=== PATIENT | female | born 1995 | race Caucasian/White ===

== ENCOUNTER 2022-09-30 12:42 | Emergency (ER) | payer OTHER, SELFPAY ==
--- NOTE | ~2022-09-30 | XR_ITS ---
EXAMINATION: XR ABDOMEN COMPLETE CLINICAL INDICATION: Reason for Exam rt abd pain COMPARISON: KUB 07/21/2009 TECHNIQUE: AP view of the abdomen. FINDINGS: Lines or devices: None. Nonobstructive bowel gas pattern. Moderate colonic stool burden. Supine technique limits evaluation for extraluminal air although no secondary findings are appreciated. Few calcifications in the pelvis favored to reflect phleboliths. XR/XR KUB IMPRESSION: * Few calcifications in the pelvis favored to reflect phleboliths however if any clinical concern for ureterolithiasis CT stone protocol could be obtained.
[2022-09-30 12:51] VITALS: BP 121/76; PULSE 83; RESP 18; TEMP 36.1; O2SAT 96; BMI 36.8
--- NOTE | 2022-09-30 12:55 | ED.ABDPAIN ---
HPI - Abdominal Pain General Chief Complaint: Abdominal Pain <Racheal Ludwig NP - Last Filed: 09/30/22 12:57> Stated Complaint: abd pain <Racheal Ludwig NP - Last Filed: 09/30/22 12:57> Time Seen by Provider: 09/30/22 13:57 <Racheal Ludwig NP - Last Filed: 09/30/22 12:57> Source: patient <Gisselle Lee MD - Last Filed: 09/30/22 18:17> Mode of arrival: ambulatory <Gisselle Lee MD - Last Filed: 09/30/22 18:17> History of Present Illness HPI narrative: 27-year-old female comes in with right-sided abdominal pain for the past month that she states has become sharp in nature over the past couple of days and has not been associated with any fever, chills, nausea, vomiting, diarrhea, urinary pain/burning/frequency. Patient states her LMP was July/2022 and is status post tubal ligation. <Gisselle Lee MD - Last Filed: 09/30/22 18:17> Related Data Allergies/Adverse Reactions: Allergies Allergy/AdvReac Type Severity Reaction Status Date / Time morphine [MORPHINE] Allergy Unknown NAUSEA Unverified 05/22/20 17:51 sertraline [From ZOLOFT] Allergy Unknown MIGRAINES Unverified 05/22/20 17:51 <Racheal Ludwig NP - Last Filed: 09/30/22 12:57> Review of Systems Review of Systems Pertinent positives and negatives as stated in HPI. <Gisselle Lee MD - Last Filed: 09/30/22 18:17> PMFSH Past Medical History Source: nursing notes reviewed <Gisselle Lee MD - Last Filed: 09/30/22 18:17> Social History Social History: Social History Advance Directives: No Advance Directives Information Provided: Yes <Racheal Ludwig NP - Last Filed: 09/30/22 12:57> Physical Exam ED Vital Signs: Vital Signs - 24 hr 09/30/22 12:51 09/30/22 14:04 09/30/22 16:18 Temperature 97.0 F 98.4 F Pulse Rate 83 65 76 Respiratory Rate 18 15 18 Blood Pressure 121/76 125/74 126/70 Pulse Oximetry 96 95 97 Oxygen Delivery Method Room Air Room Air Room Air 09/30/22 17:53 Temperature Pulse Rate 72 Respiratory Rate 17 Blood Pressure 100/71 Pulse Oximetry 97 Oxygen Delivery Method Room Air BMI result Body Mass Index 36.8 <Racheal Ludwig NP - Last Filed: 09/30/22 12:57> Vital Signs - 24 hr 09/30/22 12:51 09/30/22 14:04 09/30/22 16:18 Temperature 97.0 F 98.4 F Pulse Rate 83 65 76 Respiratory Rate 18 15 18 Blood Pressure 121/76 125/74 126/70 Pulse Oximetry 96 95 97 Oxygen Delivery Method Room Air Room Air Room Air 09/30/22 17:53 Temperature Pulse Rate 72 Respiratory Rate 17 Blood Pressure 100/71 Pulse Oximetry 97 Oxygen Delivery Method Room Air BMI result Body Mass Index 36.8 VITAL SIGNS: Reviewed. GENERAL: Well developed, well nourished, in no acute distress. HEAD: Normocephalic/atraumatic EYES: PERRLA, EOMI EARS: Ext canals without abnormality OROPHARYNX: no oral lesions noted, posterior pharynx clear LUNGS: Normal breath sounds. No adventitious sounds or accessory muscle use. SpO2<97> CARDIOVASCULAR: Regular rate and rhythm without noted murmurs ABDOMEN: Soft, patient reports discomfort at the suprapubic area, non-distended with bowel sounds. MUSCULOSKELETAL: No tenderness, deformities, or effusions noted on gross inspection. EXTREMITIES: No cyanosis, clubbing or edema. SKIN: Inspection of the skin reveals no rashes NEUROLOGIC: Alert and oriented x 4. Strength and sensation to light touch were grossly intact x 4. <Gisselle Lee MD - Last Filed: 09/30/22 18:17> Course Course Course Narrative: This is rapid medical exam. Deferred additional HPI, ROS, PE to primary provider. 27 yo female with history of IBS, migraines here with right lower abdominal pain x 1 month, LMP 2 months ago. +currently sexually active. Not on control, had tubal ligation. Normal cycles are monthly. +nausea. No vomiting, diarrhea, urinary symptoms. VSS <Racheal Ludwig NP - Last Filed: 09/30/22 12:57> Medical Decision Making Medical Decision Making MDM Narrative: 27-year-old female with history and clinical presentation suggestive of possible constipation and lower clinical suspicion for renal colic, UTI. Review of all investigations my interpretation is that patient has exacerbation of her known and underlying IBS in no evidence to suggest ectopic, UTI, renal colic. On review of all investigations my interpretation is that patient has likely discomfort from underlying IBS and low clinical suspicion for renal colic. On re-evaluation she is feeling better after the Tylenol and ibuprofen is otherwise discharged home in stable condition with instructions to increase water intake and continue with Tylenol and ibuprofen and follow-up with primary care provider. <Gisselle Lee MD - Last Filed: 09/30/22 18:17> Differential Diagnosis Differential Diagnoses: The differential diagnosis associated with the presentation includes <Gisselle Lee MD - Last Filed: 09/30/22 18:17> Please see discussion above <Gisselle Lee MD - Last Filed: 09/30/22 18:17> Lab Data [facility] Lab Attestation statement: I reviewed the patient's lab results. <Gisselle Lee MD - Last Filed: 09/30/22 18:17> Please see the discussion above <Gisselle Lee MD - Last Filed: 09/30/22 18:17> Result Diagrams: 09/30/22 13:04 09/30/22 13:04 <Racheal Ludwig NP - Last Filed: 09/30/22 12:57> Labs: Lab Results 09/30/22 09/30/22 09/30/22 Range/Units 13:04 13:04 13:04 WBC 8.5 (4.8-10.8) X10*3/uL RBC 4.63 (4.20-5.50) X10*6/uL Hgb 14.0 (12.0-16.0) g/dl Hct 40.6 (37.0-47.0) % MCV 87.7 (80.0-98.0) fL MCH 30.2 (27.0-33.0) pg MCHC 34.5 (31.0-35.0) g/dl RDW 12.5 (11.0-16.0) % Plt Count 300 (160-400) X10*3/uL MPV 9.6 (9.4-12.3) fL Immature Gran % (Auto) 0.2 (0.0-0.4) % Neut % (Auto) 50.7 (45-73) % Lymph % (Auto) 38.7 (20-40) % [place] % (Auto) 8.4 (2-11) % Eos % (Auto) 1.4 (0-4) % Baso % (Auto) 0.6 (0-2) % Lymph # (Auto) 3.3 (1.2-4.9) X10*3/uL [place] # (Auto) 0.7 (0.1-1.2) X10*3/uL Eos # (Auto) 0.1 (0.0-0.4) X10*3/uL Baso # (Auto) 0.1 (0.0-0.2) X10*3/uL Abs Immat Gran (auto) 0.02 (0.00-0.03) X10*3/uL Absolute Neuts (auto) 4.3 (2.0-8.3) x10*3/uL Absolute Nucleated RBC 0.000 (0.0-0.012) X10*3/uL Nucleated RBC % (auto) 0.0 (0.0-0.2) /100WBC Sodium 139 (135-145) mmol/L Potassium 4.1 (3.3-5.1) mmol/L Chloride 105 (96-108) mmol/L Carbon Dioxide 25 (22-29) mmol/L Anion Gap 13 (12-20) BUN 10 (9-16) mg/dL Creatinine 0.80 (0.5-1.4) mg/dL Estim Creat Clear Calc 117.6 Estimated GFR > 60 Random Glucose 97 (60-115) mg/dL Calcium 9.6 (8.4-10.2) mg/dL Total Bilirubin 0.5 (0.0-1.0) mg/dL Direct Bilirubin < 0.2 (0.0-0.5) mg/dL AST 24 (5-31) U/L ALT 41 H (0-31) U/L Alkaline Phosphatase 63 (39-117) U/L Total Protein 7.5 (6.5-8.0) g/dL Albumin 4.6 (3.5-5.0) g/dL Urine Color Yellow Urine Appearance Clear Urine pH 6.0 (5.0-9.0) Ur Specific [place] 1.025 (1.005-1.025) Urine Protein Trace (Neg-Trace) mg/dL Urine Glucose (UA) Negative (Negative) mg/dL Urine Ketones Trace (Negative) mg/dL Urine Blood Negative (Negative) Urine Nitrite Negative (Negative) Ur Leukocyte Esterase Small (1+) H (Negative) Urine RBC 0-2 (0-2) /HPF Urine WBC 0-5 (0-5) /HPF Ur Squamous Epith Cells 3-5 (0-2) /HPF Urine Bacteria None Seen (None Seen) Hyaline Casts 0-2 (0-2) /LPF Urine Test (NEGATIVE) 09/30/22 Range/Units 13:04 WBC (4.8-10.8) X10*3/uL RBC (4.20-5.50) X10*6/uL Hgb (12.0-16.0) g/dl Hct (37.0-47.0) % MCV (80.0-98.0) fL MCH (27.0-33.0) pg MCHC (31.0-35.0) g/dl RDW (11.0-16.0) % Plt Count (160-400) X10*3/uL MPV (9.4-12.3) fL Immature Gran % (Auto) (0.0-0.4) % Neut % (Auto) (45-73) % Lymph % (Auto) (20-40) % [place] % (Auto) (2-11) % Eos % (Auto) (0-4) % Baso % (Auto) (0-2) % Lymph # (Auto) (1.2-4.9) X10*3/uL [place] # (Auto) (0.1-1.2) X10*3/uL Eos # (Auto) (0.0-0.4) X10*3/uL Baso # (Auto) (0.0-0.2) X10*3/uL Abs Immat Gran (auto) (0.00-0.03) X10*3/uL Absolute Neuts (auto) (2.0-8.3) x10*3/uL Absolute Nucleated RBC (0.0-0.012) X10*3/uL Nucleated RBC % (auto) (0.0-0.2) /100WBC Sodium (135-145) mmol/L Potassium (3.3-5.1) mmol/L Chloride (96-108) mmol/L Carbon Dioxide (22-29) mmol/L Anion Gap (12-20) BUN (9-16) mg/dL Creatinine (0.5-1.4) mg/dL Estim Creat Clear Calc Estimated GFR Random Glucose (60-115) mg/dL Calcium (8.4-10.2) mg/dL Total Bilirubin (0.0-1.0) mg/dL Direct Bilirubin (0.0-0.5) mg/dL AST (5-31) U/L ALT (0-31) U/L Alkaline Phosphatase (39-117) U/L Total Protein (6.5-8.0) g/dL Albumin (3.5-5.0) g/dL Urine Color Urine Appearance Urine pH (5.0-9.0) Ur Specific [place] (1.005-1.025) Urine Protein (Neg-Trace) mg/dL Urine Glucose (UA) (Negative) mg/dL Urine Ketones (Negative) mg/dL Urine Blood (Negative) Urine Nitrite (Negative) Ur Leukocyte Esterase (Negative) Urine RBC (0-2) /HPF Urine WBC (0-5) /HPF Ur Squamous Epith Cells (0-2) /HPF Urine Bacteria (None Seen) Hyaline Casts (0-2) /LPF Urine Test NEGATIVE (NEGATIVE) <Racheal Ludwig, CURING FINISHER - Last Filed: 09/30/22 12:57> Lab Results 09/30/22 09/30/22 09/30/22 Range/Units 13:04 13:04 13:04 WBC 8.5 (4.8-10.8) X10*3/uL RBC 4.63 (4.20-5.50) X10*6/uL Hgb 14.0 (12.0-16.0) g/dl Hct 40.6 (37.0-47.0) % MCV 87.7 (80.0-98.0) fL MCH 30.2 (27.0-33.0) pg MCHC 34.5 (31.0-35.0) g/dl RDW 12.5 (11.0-16.0) % Plt Count 300 (160-400) X10*3/uL MPV 9.6 (9.4-12.3) fL Immature Gran % (Auto) 0.2 (0.0-0.4) % Neut % (Auto) 50.7 (45-73) % Lymph % (Auto) 38.7 (20-40) % [place] % (Auto) 8.4 (2-11) % Eos % (Auto) 1.4 (0-4) % Baso % (Auto) 0.6 (0-2) % Lymph # (Auto) 3.3 (1.2-4.9) X10*3/uL [place] # (Auto) 0.7 (0.1-1.2) X10*3/uL Eos # (Auto) 0.1 (0.0-0.4) X10*3/uL Baso # (Auto) 0.1 (0.0-0.2) X10*3/uL Abs Immat Gran (auto) 0.02 (0.00-0.03) X10*3/uL Absolute Neuts (auto) 4.3 (2.0-8.3) x10*3/uL Absolute Nucleated RBC 0.000 (0.0-0.012) X10*3/uL Nucleated RBC % (auto) 0.0 (0.0-0.2) /100WBC Sodium 139 (135-145) mmol/L Potassium 4.1 (3.3-5.1) mmol/L Chloride 105 (96-108) mmol/L Carbon Dioxide 25 (22-29) mmol/L Anion Gap 13 (12-20) BUN 10 (9-16) mg/dL Creatinine 0.80 (0.5-1.4) mg/dL Estim Creat Clear Calc 117.6 Estimated GFR > 60 Random Glucose 97 (60-115) mg/dL Calcium 9.6 (8.4-10.2) mg/dL Total Bilirubin 0.5 (0.0-1.0) mg/dL Direct Bilirubin < 0.2 (0.0-0.5) mg/dL AST 24 (5-31) U/L ALT 41 H (0-31) U/L Alkaline Phosphatase 63 (39-117) U/L Total Protein 7.5 (6.5-8.0) g/dL Albumin 4.6 (3.5-5.0) g/dL Urine Color Yellow Urine Appearance Clear Urine pH 6.0 (5.0-9.0) Ur Specific [place] 1.025 (1.005-1.025) Urine Protein Trace (Neg-Trace) mg/dL Urine Glucose (UA) Negative (Negative) mg/dL Urine Ketones Trace (Negative) mg/dL Urine Blood Negative (Negative) Urine Nitrite Negative (Negative) Ur Leukocyte Esterase Small (1+) H (Negative) Urine RBC 0-2 (0-2) /HPF Urine WBC 0-5 (0-5) /HPF Ur Squamous Epith Cells 3-5 (0-2) /HPF Urine Bacteria None Seen (None Seen) Hyaline Casts 0-2 (0-2) /LPF Urine Test (NEGATIVE) 09/30/22 Range/Units 13:04 WBC (4.8-10.8) X10*3/uL RBC (4.20-5.50) X10*6/uL Hgb (12.0-16.0) g/dl Hct (37.0-47.0) % MCV (80.0-98.0) fL MCH (27.0-33.0) pg MCHC (31.0-35.0) g/dl RDW (11.0-16.0) % Plt Count (160-400) X10*3/uL MPV (9.4-12.3) fL Immature Gran % (Auto) (0.0-0.4) % Neut % (Auto) (45-73) % Lymph % (Auto) (20-40) % [place] % (Auto) (2-11) % Eos % (Auto) (0-4) % Baso % (Auto) (0-2) % Lymph # (Auto) (1.2-4.9) X10*3/uL [place] # (Auto) (0.1-1.2) X10*3/uL Eos # (Auto) (0.0-0.4) X10*3/uL Baso # (Auto) (0.0-0.2) X10*3/uL Abs Immat Gran (auto) (0.00-0.03) X10*3/uL Absolute Neuts (auto) (2.0-8.3) x10*3/uL Absolute Nucleated RBC (0.0-0.012) X10*3/uL Nucleated RBC % (auto) (0.0-0.2) /100WBC Sodium (135-145) mmol/L Potassium (3.3-5.1) mmol/L Chloride (96-108) mmol/L Carbon Dioxide (22-29) mmol/L Anion Gap (12-20) BUN (9-16) mg/dL Creatinine (0.5-1.4) mg/dL Estim Creat Clear Calc Estimated GFR Random Glucose (60-115) mg/dL Calcium (8.4-10.2) mg/dL Total Bilirubin (0.0-1.0) mg/dL Direct Bilirubin (0.0-0.5) mg/dL AST (5-31) U/L ALT (0-31) U/L Alkaline Phosphatase (39-117) U/L Total Protein (6.5-8.0) g/dL Albumin (3.5-5.0) g/dL Urine Color Urine Appearance Urine pH (5.0-9.0) Ur Specific [place] (1.005-1.025) Urine Protein (Neg-Trace) mg/dL Urine Glucose (UA) (Negative) mg/dL Urine Ketones (Negative) mg/dL Urine Blood (Negative) Urine Nitrite (Negative) Ur Leukocyte Esterase (Negative) Urine RBC (0-2) /HPF Urine WBC (0-5) /HPF Ur Squamous Epith Cells (0-2) /HPF Urine Bacteria (None Seen) Hyaline Casts (0-2) /LPF Urine Test NEGATIVE (NEGATIVE) <Gisselle Lee MD - Last Filed: 09/30/22 18:17> Radiology Impression Radiologist Impression: My interpretation is in agreement with radiology's impression of the imaging study. <Gisselle Lee MD - Last Filed: 09/30/22 18:17> Medications Administered Discontinued Medications Generic Name Dose Route Start Last Admin Trade Name Freq PRN Reason Stop Dose Admin Acetaminophen 975 mg 09/30/22 17:00 09/30/22 17:56 Acetaminophen 325 Mg Tablet PO 09/30/22 17:01 Not Given ONCE ONE Ibuprofen 400 mg 09/30/22 17:00 09/30/22 17:56 Ibuprofen 400 Mg Tablet PO 09/30/22 17:01 Not Given ONCE ONE <Racheal Ludwig NP - Last Filed: 09/30/22 12:57> Medications Administered Discontinued Medications Generic Name Dose Route Start Last Admin Trade Name Moira PRN Reason Stop Dose Admin Acetaminophen 975 mg 09/30/22 17:00 09/30/22 17:56 Acetaminophen 325 Mg Tablet PO 09/30/22 17:01 Not Given ONCE ONE Ibuprofen 400 mg 09/30/22 17:00 09/30/22 17:56 Ibuprofen 400 Mg Tablet PO 09/30/22 17:01 Not Given ONCE ONE <Gisselle Lee MD - Last Filed: 09/30/22 18:17> Discharge Plan Discharge Clinical Impression: History of IBS <Racheal Ludwig NP - Last Filed: 09/30/22 12:57> Patient Disposition: Home, Self-Care <Racheal Ludwig NP - Last Filed: 09/30/22 12:57> Instructions: Irritable Bowel Syndrome (ED) <Racheal Ludwig NP - Last Filed: 09/30/22 12:57> Additional Instructions: 1. I recommend further evaluation by your primary care provider, there were no acute findings your workup today. Increase water intake and to utilize [id number] Tylenol/ibuprofen for discomfort. Return to the ER for any worsening symptoms. <Racheal Ludwig NP - Last Filed: 09/30/22 12:57> Referrals: Alissa Osborn MD [Primary Care Provider] - <Racheal Ludwig NP - Last Filed: 09/30/22 12:57>
[2022-09-30 13:10] LABS: MANUAL DIFF FLAG NO
[2022-09-30 13:13] LABS: Basophils Absolute Auto 0.1 X10*3/uL (0.0-0.2); Basophils Percent Auto 0.6 % (0-2); Eosinophils Absolute Auto 0.1 X10*3/uL (0.0-0.4); Eosinophils Percent Auto 1.4 % (0-4); Hematocrit 40.6 % (37.0-47.0); Imm Gran Abs Auto 0.02 X10*3/uL (0.00-0.03); Imm Gran Pct Auto 0.2 % (0.0-0.4); Lymphocytes Absolute Auto 3.3 X10*3/uL (1.2-4.9); Lymphocytes Percent Auto 38.7 % (20-40); Mean Corpuscular HGB Conc 34.5 g/dl (31.0-35.0); Mean Corpuscular Hemoglobin 30.2 pg (27.0-33.0); Mean Corpuscular Volume 87.7 fL (80.0-98.0); Mean Platelet Volume 9.6 fL (9.4-12.3); Monocytes Absolute Auto 0.7 X10*3/uL (0.1-1.2); Monocytes Percent Auto 8.4 % (2-11); Neutrophils Absolute Auto 4.3 x10*3/uL (2.0-8.3); Neutrophils Percent Auto 50.7 % (45-73); Platelet Count 300 X10*3/uL (160-400); Red Blood Count 4.63 X10*6/uL (4.20-5.50); Red Cell Distribution Width 12.5 % (11.0-16.0); White Blood Count 8.5 X10*3/uL (4.8-10.8)
[2022-09-30 13:16] LABS: Urine Pregnancy NEGATIVE (NEGATIVE)
[2022-09-30 13:17] LABS: Appearance Urine Clear; Color Urine Yellow; Glucose Urine UA Negative (Negative); Leukocyte Esterase Urine Small (1+) (Negative); Nitrite Urine Negative (Negative); Specific Gravity - Urine 1.025 (1.005-1.025); UMIC TRIGGER UACC YES; UPreg QC Valid YES; Urine Blood Negative (Negative); Urine Ketones Trace mg/dL (Negative); Urine Protein Trace mg/dL (Neg-Trace)
[2022-09-30 13:27] LABS: Bacteria Urine None Seen (None Seen); Hyaline Casts Urine 0-2 /LPF (0-2); RBC Urine 0-2 /HPF (0-2); UACC Culture Trigger YES; WBC Urine 0-5 /HPF (0-5)
[2022-09-30 13:42] LABS: Alanine Aminotransferase 41 U/L (0-31); Albumin Level 4.6 g/dL (3.5-5.0); Alkaline Phosphatase 63 U/L (39-117); Anion Gap 13 (12-20); Aspartate Amino Transferase 24 U/L (5-31); Bilirubin Direct < 0.2 mg/dL (0.0-0.5); Bilirubin Total 0.5 mg/dL (0.0-1.0); Blood Urea Nitrogen 10 mg/dL (9-16); Calcium 9.6 mg/dL (8.4-10.2); Carbon Dioxide 25 mmol/L (22-29); Chloride 105 mmol/L (96-108); Creatinine Clr Calc Pharmacy 117.6; Estimated Glomerular Filt Rate > 60; Glucose Random 97 mg/dL (60-115); Potassium 4.1 mmol/L (3.3-5.1); Sodium 139 mmol/L (135-145); Total Protein 7.5 g/dL (6.5-8.0)
--- OUTSIDE RECORDS SUMMARY | 2022-09-30 14:00 | XMS_ITS | Continuity of Care Document ---
:1995 Author Organization [facility] ic Address [address] [place] [id number]- Care Team Providers Name Role Phone Barry ALEX, Nadja Conklin Primary Care Physician Encounter [facility] [place] Date(s): 09/20/19 - 01/16/[address] [address]- [facility] Attending Physician: Not on Staff, Attending MD Allergies, Adverse Reactions, Alerts Substance Reaction Severity Status morphine Active Zoloft Active Immunizations Given and Recorded Vaccine Date Status Refusal Reason influenza virus vaccine, inactivated 06/04/19 Given influenza virus vaccine, inactivated1 06/14/17 Given influenza virus vaccine, inactivated 05/31/14 Given tetanus/diphtheria/pertussis, acel(Tdap) 05/14/19 Given tetanus/diphtheria/pertussis, acel(Tdap) 04/29/14 Given 1Result Comment: [06/14/2017] [id number] Medications Prenatabs Rx oral tablet See Instructions, TAKE 1 TABLET BY MOUTH EVERY DAY, # 30 tablet, 8 Refills, Maintenance, [facility], 30, TAKE 1 TABLET BY MOUTH EVERY DAY, 163, cm, 09/10/19 11:32:00 EST, Height, 90.8, kg, 08/03/19 9:27:00 EST, Dry Weight Start Date: 01/16/20 Status: Ordered Problem List Condition Effective Dates Status Health Status Informant Elevated ALT measurement(Confirmed) Active Cholelithiasis previous pregnany Active 2018(Confirmed) Chiari malformation type I s/p Active repair(Confirmed) Gestational diabetes mellitus, Active antepartum(Confirmed) Headache(Confirmed) Active Irritable bowel syndrome Active (IBS)(Confirmed) Obesity(Confirmed) Active Other Pain Disorders Related to Active Psychological Factors(Confirmed) Social History Social History Type Response Smoking Status Never smoker entered on: 12/26/14 Sex
--- OUTSIDE RECORDS SUMMARY | 2022-09-30 14:00 | XMS_ITS | Continuity of Care Document ---
:1995 Author Organization [facility] ic Address [address] [place] [id number]- Care Team Providers Name Role Phone Barry ALEX, Nadja Conklin Primary Care Physician Encounter [facility] Date(s): 05/26/20 - 06/25/[address] [address]- [facility] Attending Physician: Maria De Jesus Mcconnell Admitting Physician: Maria De Jesus Mcconnell Referring Physician: AdmMaria De Jesus norman Allergies, Adverse Reactions, Alerts Substance Reaction Severity Status morphine Active Zoloft Active Immunizations Given and Recorded Vaccine Date Status Refusal Reason influenza virus vaccine, inactivated 06/04/19 Given influenza virus vaccine, inactivated1 06/14/17 Given influenza virus vaccine, inactivated 05/31/14 Given tetanus/diphtheria/pertussis, acel(Tdap) 05/14/19 Given tetanus/diphtheria/pertussis, acel(Tdap) 04/29/14 Given 1Result Comment: [06/14/2017] [id number] Medications Prenatabs Rx oral tablet See Instructions, TAKE 1 TABLET BY MOUTH EVERY DAY, # 30 tablet, 8 Refills, Maintenance, [id number], 30, TAKE 1 TABLET BY MOUTH EVERY [...]
--- OUTSIDE RECORDS SUMMARY | 2022-09-30 14:00 | XMS_ITS | Continuity of Care Document ---
:1995 Author Organization [facility] ic Address [address] [place] [id number]- Care Team Providers Name Role Phone Barry ALEX, Nadja Conklin Primary Care Physician Encounter [facility] [place] Date(s): 08/13/19 - 08/23/[address] [address]- [facility] Attending Physician: Maria De Jesus Mcconnell Admitting Physician: Maria De Jesus Mcconnell Referring Physician: AdmtrMaria De Jesus Allergies, Adverse Reactions, Alerts Substance Reaction Severity Status morphine Active Zoloft Active Immunizations Given and Recorded Vaccine Date Status Refusal Reason influenza virus vaccine, inactivated 06/04/19 Given influenza virus vaccine, inactivated1 06/14/17 Given influenza virus vaccine, inactivated 05/31/14 Given tetanus/diphtheria/pertussis, acel(Tdap) 05/14/19 Given tetanus/diphtheria/pertussis, acel(Tdap) 04/29/14 Given 1Result Comment: [06/14/2017] [id number] Medications nystatin topical 590044 u/gm cream 1 application, Topically, 3 times a day, for 14 days, # 15 Gm, 0 Refills, Acute 08/28/19 15:58:59 EST, 08/14/19 15:58:59 EST, Cream, apply to breast and wipe off before (baby has thrush),1 application Topically 3 times a day,x14 days, 1... Start Date: 08/14/19 Stop Date: 08/28/19 Status: OrderedPrenatal Multivitamins with Folic Acid 1 mg oral tablet 1 tablet, By Mouth, Daily, # 90 tablet, 3 Refills, Maintenance, 11/01/18 12:38:16 EST, Tablet, 1 tablet By Mouth Daily,x90 days Start Date: 11/01/18 Stop Date: 10/27/19 Status: Ordered Problem List Condition Effective Dates [...]
--- OUTSIDE RECORDS SUMMARY | 2022-09-30 14:00 | XMS_ITS | Continuity of Care Document ---
:1995 Author Organization [facility] Address [address] [place] [id number]- Care Team Providers Name Role Phone Nadja Reddy MD Primary Care Physician En[place] [facility] [place] Date(s): 05/09/22 - 05/10/[address] [address]- Encounter Diagnosis Left low back pain with radiculopathy (Final) - 05/10/22 Discharge Disposition: A-D/C Home Attending Physician: Chrissie Serna MD Admitting Physician: Chrissie Serna MD Referring Physician: Not on Staff, Referring MD Allergies, Adverse Reactions, Alerts Substance Reaction Severity Status morphine Active Zoloft Active Immunizations Given and Recorded Vaccine Date Status Refusal Reason influenza virus vaccine, inactivated 06/04/19 Given influenza virus vaccine, inactivated1 06/14/17 Given influenza virus vaccine, inactivated 05/31/14 Given tetanus/diphtheria/pertussis, acel(Tdap) 05/14/19 Given tetanus/diphtheria/pertussis, acel(Tdap) 04/29/14 Given 1Result Comment: [06/14/2017] [id number] Medications Colace sodium 100 mg oral capsule 100 mg, 1, capsule, By Mouth, 2 times a day, PRN, # 20 capsule, Refills 0, Tot. Refills 0, Maintenance, for constipation, 05/10/22 14:41:00 EDT, Route to Pharmacy Electronically, [facility]/pharmacy #[id number], Partial fill upon patient request if the prescriptio... Start Date: 05/10/22 Status: OrderedDepakote 250 mg oral enteric coated tablet 1 tablet = 250 mg, By Mouth, 3 times a day, # 90 tablet, 0 Refills, Maintenance, 04/23/21 14:03:00 EDT, EC Tablet, Partial fill upon patient request if the prescription is for a schedule II opioid drug. Start Date: 12/26/20 Status: Orderedlidocaine 1.8% topical film 1 patch, Topically, Daily, for 5 days, leave on up to 12 hours, # 5 each, 0 Refills, Acute 05/15/22 14:40:00 EDT, 05/10/22 14:40:00 EDT, Film, [facility]/pharmacy #[id number], Partial fill upon patient request if the prescription is for a schedule II opioid drug.,... Start Date: 05/10/22 Stop Date: 05/15/22 Status: OrderedMedrol 4 mg oral tablet 1 pack/packet, By Mouth, Daily, for 6 days, as directed on package labeling, # 21 tablet, 0 Refills,Acute 05/16/22 14:38:00 EDT, 05/10/22 14:38:00 EDT, Tablet, [facility]/pharmacy #[id number], Partial fill upon patient request if the prescription is for a schedul... Start Date: 05/10/22 Stop Date: 05/16/22 Status: OrderedoxyCODONE 5 mg oral tablet 5 mg, 1, tablet, By Mouth, Every 6 hours, PRN, for 2 days, # 5 tablet, Refills 0, Tot. Refills 0, Acute 05/12/22 14:40:00 EDT, for pain, 05/10/22 14:40:00 EDT, Route to Pharmacy Electronically, [facility]/pharmacy #[id number], Partial fill upon patient request if... Start Date: 05/10/22 Stop Date: 05/12/22 Status: OrderedPaxil 20 mg oral tablet 20 mg, 1, tablet, By Mouth, Daily, # 30 tablet, Refills 0, Maintenance, 12/26/20 14:03:00 EDT, Partial fill upon patient request if the prescription is for a schedule II opioid drug. Start Date: 12/26/20 Status: OrderedPrenatabs Rx oral tablet See Instructions, TAKE 1 TABLET BY MOUTH EVERY DAY, # 30 tablet, 8 Refills, Maintenance, [id number], 30, TAKE 1 TABLET BY MOUTH EVERY DAY, 163, cm, 09/10/19 11:32:00 EST, Height, 90.8, kg, 08/03/19 9:27:00 EST, Dry Weight Start Date: 01/16/20 Status: Ordered Problem List Condition Effective Dates Status Health Status Informant Elevated ALT measurement(Confirmed) Active Chiari malformation type I s/p Active repair(Confirmed) Irritable bowel syndrome Active (IBS)(Confirmed) Obese class II(Confirmed) Active Obesity(Confirmed) Active 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 Patient denies symptoms. Patient reports bloody stools since January 2022. Patient exacerbated by movement and standing. 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 FINDINGS: No bone lesions or fractures. Unchanged partial lumbarization of S1. Normal vertebral lumbar heights and disc configuration. Normal alignment. No spondylolysis or spondylolisthesis. Normal soft tissues. IMPRESSION: No acute fracture or dislocation. I have personally reviewed the images and I agree with this report. WSN: [id number] Ordering Physician: Juliano Boston Dictated By: Janna Roberts DO Dictated Date/Time: 05/09/22 9:23 pm Reviewed By: Luis Stone MD Signed By: Luis Stone MD Signed Date/Time: 05/09/22 9:28 pm Transcribed By: CHRISTINE Transcribed Date/Time: 05/09/22 9:21 pm Vital Signs Most recent to oldest 1 2 3 [Reference Range]: Height 163 cm 163 cm 163 cm (05/10/22 2:47 PM) (05/10/22 12:38 PM) (05/09/22 7:07 PM) Weight 98.1 kg 98.1 kg 98.1 kg (05/10/22 2:47 PM) (05/10/22 12:38 PM) (05/09/22 7:07 PM) Oxygen Saturation [94-100 %] 100 % 98 % 100 % (05/10/22 2:47 PM) (05/10/22 12:38 PM) (05/10/22 10:34 AM) Pulse Rate [55-90 bpm] 78 bpm 88 bpm 65 bpm (05/10/22 2:47 PM) (05/10/22 12:38 PM) (05/10/22 10:34 AM) Body Mass Index [18.5-24.99] 36.92 36.92 *>HHI* *>HHI* (05/10/22 2:47 PM) (05/10/22 12:38 PM) Blood Pressure [90-138/55-84 mm 121/73 mm Hg 104/53 mm Hg 121/68 mm Hg Hg] (05/10/22 2:47 PM) (05/10/22 12:38 PM) (05/10/22 10:34 AM) Respiratory Rate [16-30 br/min] 19 br/min 19 br/min 18 br/min (05/10/22 2:47 PM) (05/10/22 12:38 PM) (05/10/22 10:34 AM) Temperature [96.8-100.4 DegF] 97.9 DegF 97.7 DegF 97 .8 DegF (05/10/22 2:47 PM) (05/10/22 12:38 PM) (05/10/22 10:34 AM) Mode of Delivery (Oxygen) Room air Room air Room a ir (05/10/22 2:47 PM) (05/10/22 12:38 PM) (05/10/22 10:34 AM) Blood pressure sites Arm, right Arm, right Arm, left (05/10/22 10:34 AM) (05/10/22 8:13 AM) (05/10/22 6:30 AM) Temperature Route Oral Oral Oral (05/10/22 2:47 PM) (05/10/22 12:38 PM) (05/10/22 10:34 AM) Dry Weight 98.1 kg 98.1 kg 98.1 kg (05/10/22 2:47 PM) (05/10/22 12:38 PM) (05/09/22 7:07 PM) Social History Social History Type Response Smoking Status Never smoker entered on: 12/26/14 Sex XR Lumbar spine 2 or 3 Views BHSPowerscribe , CIS S: TRANSCRIBE Luis Stone MD: VERIFY Janna Roberts DO: SIGN Event Display: Result: Authored Date: [id number] Lumbar Spine 2 or 3 Views INDICATION: Patient reports awoke this morning with severe left lower back pain that radiates down left leg when standing. Patient denies symptoms. Patient reports bloody stools since January 2022. Patient exacerbated by movement and standing. 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 FINDINGS: No bone lesions or fractures. Unchanged partial lumbarization of S1. Normal vertebral lumbar heights and disc configuration. Normal alignment. No spondylolysis or spondylolisthesis. Normal soft tissues. IMPRESSION: No acute fracture or dislocation. I have personally reviewed the images and I agree with this report. WSN: [id number] Ordering Physician: Juliano Boston Dictated By: Janna Roberts DO Dictated Date/Time: 05/09/22 9:23 pm Reviewed By: Luis Stone MD Signed By: Luis Stone MD Signed Date/Time: 05/09/22 9:28 pm Transcribed By: CHRISTINE Transcribed Date/Time: 05/09/22 9:21 pm Care Team PersonnelName: Nadja Reddy MD Address: [address] [place] [address] [address]
--- OUTSIDE RECORDS SUMMARY | 2022-09-30 14:00 | XMS_ITS | Continuity of Care Document ---
:1995 Author Organization [facility] ic Address [address] [place] [address]- Care Team Providers Name Role Phone Nadja Reddy MD Primary Care Physician [place] [facility] [place] 03[place]/[address] [address]- [facility] Attending Physician: Not on Staff, Attending MD Referring Physician: Nadja Reddy MD Allergies, Adverse Reactions, Alerts Substance Reaction Severity Status morphine Active Zoloft Active Immunizations Given and Recorded Vaccine Date Status Refusal Reason influenza virus vaccine, inactivated 06/04/19 Given influenza virus vaccine, inactivated1 06/14/17 Given influenza virus vaccine, inactivated 05/31/14 Given tetanus/diphtheria/pertussis, acel(Tdap) 05/14/19 Given tetanus/diphtheria/pertussis, acel(Tdap) 04/29/14 Given 1Result Comment: [06/14/2017] [id number] Medications Prenatabs Rx oral tablet See Instructions, TAKE 1 TABLET BY MOUTH EVERY DAY, # 30 tablet, 8 Refills, Maintenance, [id number], 30, TAKE 1 TABLET BY MOUTH EVERY [...]
--- OUTSIDE RECORDS SUMMARY | 2022-09-30 14:00 | XMS_ITS | Continuity of Care Document ---
:1995 Author Organization [facility] ic Address [address] [place] [address]- Care Team Providers Name Role Phone Barry ALEX, Nadja Conklin Primary Care Physician Encounter [facility] [place] Date(s): 12/26/20 - 01/25/[address] [address] Attending Physician: Maria De Jesus Mcconnell Admitting Physician: AdmMaria De Jesus norman Referring Physician: Admtr, Maria De Jesus Allergies, Adverse Reactions, Alerts Substance Reaction Severity Status morphine Active Zoloft Active Immunizations Given and Recorded Vaccine Date Status Refusal Reason influenza virus vaccine, inactivated 06/04/19 Given influenza virus vaccine, inactivated1 06/14/17 Given influenza virus vaccine, inactivated 05/31/14 Given tetanus/diphtheria/pertussis, acel(Tdap) 05/14/19 Given tetanus/diphtheria/pertussis, acel(Tdap) 04/29/14 Given 1Result Comment: [06/14/2017] [id number] Medications Depakote 250 mg oral enteric coated tablet 1 tablet = 250 mg, By Mouth, 3 times a day, # 90 tablet, 0 Refills, Maintenance, 12/26/20 14:03:00 EDT, EC Tablet, Partial fill upon patient request if the prescription is for a schedule II opioid drug. Start Date: 12/26/20 Status: OrderedPaxil 20 mg oral tablet 20 mg, 1, tablet, By Mouth, Daily, # 30 tablet, Refills 0, Maintenance, 12/26/20 14:03:00 EDT, Partial fill upon patient request if the prescription is for a schedule II opioid drug. Start Date: 12/26/20 Status: OrderedPrenatabs Rx oral tablet See Instructions, TAKE 1 TABLET BY MOUTH EVERY DAY, # 30 tablet, 8 Refills, Maintenance, [id number], 30, TAKE 1 TABLET BY MOUTH EVERY DAY, 163, cm, 09/10/19 11:32:00 EST, Height, 90.8, kg, 08/03/19 9:27:00 EST, Dry Weight Start Date: 01/16/20 Status: Ordered Problem List Condition Effective Dates Status Health Status Informant Elevated ALT measurement(Confirmed) Active Chiari malformation type I s/p Active repair(Confirmed) Irritable bowel syndrome Active (IBS)(Confirmed) Obesity(Confirmed) Active Other Pain Disorders Related to Active Psychological Factors(Confirmed) Social History Social History Type Response Smoking Status Never smoker entered on: 12/26/14 Sex
--- OUTSIDE RECORDS SUMMARY | 2022-09-30 14:00 | XMS_ITS | Continuity of Care Document ---
:1995 Author Organization [facility] ic Address [address] [place] [address]- Care Team Providers Name Role Phone Barry ALEX, Nadja Conklin Primary Care Physician [place] [facility] [place] - 09/09/[address] [address]- [facility] Attending Physician: Not on Staff, Attending MD Allergies, Adverse Reactions, Alerts Substance Reaction Severity Status morphine Active Zoloft Active Immunizations Given and Recorded Vaccine Date Status Refusal Reason influenza virus vaccine, inactivated 06/04/19 Given influenza virus vaccine, inactivated1 06/14/17 Given influenza virus vaccine, inactivated 05/31/14 Given tetanus/diphtheria/pertussis, acel(Tdap) 05/14/19 Given tetanus/diphtheria/pertussis, acel(Tdap) 04/29/14 Given 1Result Comment: [06/14/2017] [id number] Medications Multivitamins with Folic Acid 1 mg oral [...]
--- OUTSIDE RECORDS SUMMARY | 2022-09-30 14:00 | XMS_ITS | Continuity of Care Document ---
:1995 Author Organization [facility] ic Address [address] [place] [address]- Care Team Providers Name Role Phone Nadja Reddy MD Primary Care Physician [place] [facility] [place] - 06/25/[address] [address]- [facility] Attending Physician: Not on Staff, Attending MD Referring Physician: Nadja Reddy MD Allergies, Adverse Reactions, Alerts Substance Reaction Severity Status morphine Active Zoloft Active Immunizations Given and Recorded Vaccine Date Status Refusal Reason influenza virus vaccine, inactivated 06/04/19 Given influenza virus vaccine, inactivated1 06/14/17 Given influenza virus vaccine, inactivated 05/31/14 Given tetanus/diphtheria/pertussis, acel(Tdap) 05/14/19 Given tetanus/diphtheria/pertussis, acel(Tdap) 04/29/14 Given 1Result Comment: [06/14/2017] [id number] Medications Prenatabs Rx oral tablet See Instructions, TAKE 1 TABLET BY MOUTH EVERY DAY, # 30 tablet, 8 Refills, Maintenance, [id number], 30, TAKE 1 TABLET BY MOUTH EVERY [...]
--- OUTSIDE RECORDS SUMMARY | 2022-09-30 14:00 | XMS_ITS | Continuity of Care Document ---
:1995 Author Organization [facility] ic Address [address] [place] [address]- Care Team Providers Name Role Phone Barry ALEX, Nadja Conklin Primary Care Physician [place] [facility] [place] 08/13/19 - 08/13/[address] [address]- [facility] Discharge Disposition: A-D/C Home Attending Physician: Rodney Garibay MD Admitting Physician: Not on Staff, Admitting MD Referring Physician: Not on Staff, Referring MD Allergies, Adverse Reactions, Alerts Substance Reaction Severity Status morphine Active Zoloft Active Immunizations Given and Recorded Vaccine Date Status Refusal Reason influenza virus vaccine, inactivated 06/04/19 Given influenza virus vaccine, inactivated1 06/14/17 Given influenza virus vaccine, inactivated 05/31/14 Given tetanus/diphtheria/pertussis, acel(Tdap) 05/14/19 Given tetanus/diphtheria/pertussis, acel(Tdap) 04/29/14 Given 1Result Comment: [06/14/2017] [id number] Medications Keflex monohydrate 500 mg oral capsule 1 capsule = 500 mg, By Mouth, 4 times a day, for 10 days, # 40 capsule, 0 Refills, Acute 08/15/19 14:00:59 EST, 08/05/19 14:00:59 EST, Capsule Start Date: 08/05/19 Stop Date: 08/15/19 Status: Orderednystatin topical [id number] u/gm cream 1 application, Topically, 3 times [...] Pain Disorders Related to Active Psychological Factors(Confirmed) Vital Signs Most recent to oldest [Reference Range]: 1 Weight 87.0 kg (08/13/19 9:53 AM) Blood Pressure [90-138/55-84 mm Hg] 108/64 mm Hg (08/13/19 9:53 AM) Blood pressure sites Arm, left (08/13/19 9:53 AM) Weight Obtained Via Standing scale (08/13/19 9:53 AM) Social History Social History Type Response Smoking Status Never smoker entered on: 12/26/14 Sex
--- OUTSIDE RECORDS SUMMARY | 2022-09-30 14:00 | XMS_ITS | Continuity of Care Document ---
:1995 Author Organization [facility] ic Address [address] [place] [address]- Care Team Providers Name Role Phone Barry ALEX, Nadja Conklin Primary Care Physician Encounter [facility] [place] Date(s): 08/06/19 - 09/07/[address] [address]- [facility] Attending Physician: Not on Staff, Attending MD Referring Physician: Yolande Dunn DO Allergies, Adverse Reactions, Alerts Substance Reaction Severity Status morphine Active Zoloft Active Immunizations Given and Recorded Vaccine Date Status Refusal Reason influenza virus vaccine, inactivated 06/04/19 Given influenza virus vaccine, inactivated1 06/14/17 Given influenza virus vaccine, inactivated 05/31/14 Given tetanus/diphtheria/pertussis, acel(Tdap) 05/14/19 Given tetanus/diphtheria/pertussis, acel(Tdap) 04/29/14 Given 1Result Comment: [06/14/2017] [id number] Medications Multivitamins with Folic Acid 1 mg [...]
[2022-09-30 14:04] VITALS: BP 125/74; PULSE 65; RESP 15; O2SAT 95
[2022-09-30 16:18] VITALS: BP 126/70; PULSE 76; RESP 18; TEMP 36.9; O2SAT 97
[2022-09-30 17:53] VITALS: BP 100/71; PULSE 72; RESP 17; O2SAT 97
== END 2022-09-30 18:41 | disposition home or self-care (01) ==
PROVIDERS: Nurse Practitioner Family; Emergency Provider Student in an Organized Health Care Education/Training Program; PCP Internal Medicine
DX: K58.9 Irritable bowel syndrome, unspecified (principal); Z79.899 Other long term (current) drug therapy
CPT/HCPCS: 36415; 74018; 80048; 80076; 81001; 81025; 85025; 87086; 99283

== ENCOUNTER 2022-11-25 11:32 | Emergency (ER) | payer OTHER, SELFPAY ==
--- NOTE | ~2022-11-25 | XR_ITS ---
EXAMINATION: XR LUMBOSACRAL SPINE CLINICAL INFORMATION: Lower back pain radiating down left leg. COMPARISON: None available. TECHNIQUE: Three views of the lumbosacral spine. FINDINGS: Transitional lumbosacral anatomy with lumbarization of S1. The vertebral bodies have normal height and alignment. The curvature of the lumbar spine is normal. The disc spaces are maintained. No evidence of degenerative disc disease. No pars interarticularis defect or vertebral compression fracture. The anterior and posterior elements are intact. No lytic or osteoblastic lesion. Sacrum and sacroiliac joints are normal. XR/XR lumbar spine 2-3V IMPRESSION: No acute findings within the lumbosacral spine. No evidence of degenerative disc disease, fracture or malalignment.
[2022-11-25 11:42] VITALS: BP 128/72; PULSE 64; RESP 16; TEMP 36.7; O2SAT 98; BMI 20.5
--- NOTE | 2022-11-25 11:44 | ED.GENADULT ---
HPI - General Adult General Chief complaint: Back Pain/Injury <Angel Long - Last Filed: 11/25/22 11:47> Stated complaint: Back pain/leg weakness <Angel Long - Last Filed: 11/25/22 11:47> Time Seen by Provider: 11/25/22 11:59 <Angel Long - Last Filed: 11/25/22 11:47> Source: patient <CHANCE Marx - Last Filed: 11/25/22 14:54> Mode of arrival: ambulatory <CHANCE Marx - Last Filed: 11/25/22 14:54> History of Present Illness HPI narrative: 27-year-old female with a past medical history of chronic back pain presenting to the ED complaining of acute on chronic low back pain radiating down left lower extremity x1 month. Denies recent injury, trauma, fall. Reports intermittent paresthesias to left foot with mild weakness. Denies fever, chills, abdominal pain, hematuria, dysuria, urinary incontinence/retention, fever Reports does follow-up/consult with neurosurgeon in 1 month <CHANCE Marx - Last Filed: 11/25/22 14:54> Onset (ago): month(s) <CHANCE Marx - Last Filed: 11/25/22 14:54> Related Data Home medications: Previous Rx's Medication Instructions Recorded acetaminophen 500 mg tablet 500 mg PO Q6H PRN fever or pain 11/25/22 (Tylenol Extra Strength) #14 tabs cyclobenzaprine 5 mg tablet 5 mg PO Q8H PRN pain (scale score 11/25/22 7-10) 5 days #14 tabs lidocaine 5 % topical patch 1 patch topical DAILY PRN pain #30 11/25/22 (Lidoderm) ea naproxen 500 mg tablet 500 mg PO BID PRN pain 10 days #20 11/25/22 tabs <Angel Long - Last Filed: 11/25/22 11:47> Allergies/adverse reactions: Allergies Allergy/AdvReac Type Severity Reaction Status Date / Time morphine [MORPHINE] Allergy Unknown NAUSEA Verified 11/25/22 11:42 sertraline [From ZOLOFT] Allergy Unknown MIGRAINES Verified 11/25/22 11:42 <Angel Long - Last Filed: 11/25/22 11:47> Review of Systems Review of Systems: Constitutional: No Fever, No Chills ENT/Mouth: No Ear Pain, No Nasal Congestion, No sore throat, No Rhinorrhea, No Swallowing Difficulty Cardiovascular: No Chest Pain, No SOB Respiratory: No Cough, No Sputum, No Wheezing Gastrointestinal: No Nausea, No Vomiting, No Diarrhea, No Constipation, No Abdominal pain Genitourinary: No Dysuria, No Urinary Frequency, No Hematuria, No Urinary Incontinence/retention, No Flank Pain Musculoskeletal: + joint pain, No Myalgias, No Joint Swelling Skin: No Skin Lesions, No rash Neuro: No Weakness, No Numbness, No Paresthesias <CHANCE Marx - Last Filed: 11/25/22 14:54> Yes all other systems are reviewed and are negative <CHANCE Marx - Last Filed: 11/25/22 14:54> Constitutional: Constitutional: Reports as per HPI <CHANCE Marx - Last Filed: 11/25/22 14:54> [facility] Past Medical History Attestation statement: The following information was validated with the patient. <CHANCE Marx - Last Filed: 11/25/22 14:54> Social History Social History: Social History Advance Directives: No Advance Directives Information Provided: Yes <Angel Long - Last Filed: 11/25/22 11:47> Physical Exam ED Vital Signs: Vital Signs - 24 hr 11/25/22 11:42 Temperature 98.0 F Pulse Rate 64 Respiratory Rate 16 Blood Pressure 128/72 Pulse Oximetry 98 Oxygen Delivery Method Room Air BMI result Body Mass Index 20.5 <Angel Long - Last Filed: 11/25/22 11:47> Vital Signs - 24 hr 11/25/22 11:42 Temperature 98.0 F Pulse Rate 64 Respiratory Rate 16 Blood Pressure 128/72 Pulse Oximetry 98 Oxygen Delivery Method Room Air BMI result Body Mass Index 20.5 <CHANCE Marx - Last Filed: 11/25/22 14:54> Const General: cooperative, healthy appearing and no acute distress <CHANCE Marx - Last Filed: 11/25/22 14:54> Orientation/consciousness: patient oriented x3 <Sophy White PA - Last Filed: 11/25/22 14:54> Limitations: no limitations <Sophy White PA - Last Filed: 11/25/22 14:54> HENMT Head: Yes normal to inspection and Yes atraumatic <Sophy White PA - Last Filed: 11/25/22 14:54> Ears: hearing grossly normal bilaterally <Sophy White PA - Last Filed: 11/25/22 14:54> General nose exam: Normal external nose present <Sophy White IN - Last Filed: 11/25/22 14:54> Face and sinus: Yes normal facial exam <Sophy White PA - Last Filed: 11/25/22 14:54> Eyes General: appearance normal, both eyes and all related structures <Sophy White IN - Last Filed: 11/25/22 14:54> EOM: EOMs intact bilaterally <Sophy White IN - Last Filed: 11/25/22 14:54> Neck Neck: Yes normal visual inspection and Yes no meningeal signs <Sophy White IN - Last Filed: 11/25/22 14:54> Resp Effort & Inspection: normal respiratory effort and no respiratory distress <Sophy White PA - Last Filed: 11/25/22 14:54> Cardio Rate: regular rate <Sophy White IN - Last Filed: 11/25/22 14:54> Heart sounds: S1 normal heart sound present and S2 normal heart sound present <Sophy White PA - Last Filed: 11/25/22 14:54> GI Inspection: Yes normal to inspection <Sophy White IN - Last Filed: 11/25/22 14:54> Palpation (GI): Soft to palpation, nontender, no guarding and not rigid <Sophy White PA - Last Filed: 11/25/22 14:54> General: Yes no CVA tenderness <Sophy White PA - Last Filed: 11/25/22 14:54> Back/Spine/Pelvis Other: No midline thoracic spinous tenderness. + lower lumbar midline tenderness to palpation, no step-off or deformity. No ecchymosis/erythema <CHANCE Marx - Last Filed: 11/25/22 14:54> Back: no CVA tenderness <CHANCE Marx - Last Filed: 11/25/22 14:54> Skin Rashes: no rashes <CHANCE Marx - Last Filed: 11/25/22 14:54> Wounds: no wounds <CHANCE Marx - Last Filed: 11/25/22 14:54> Neuro Other: Strength intact throughout. No saddle anesthesia. Sensation intact to light touch. Neurovascular intact distally <CHANCE Marx - Last Filed: 11/25/22 14:54> General: patient oriented x3, gait normal, tone normal, moves all extremities, no meningeal signs and no focal motor deficits <CHANCE Marx - Last Filed: 11/25/22 14:54> Gait exam (Neuro): Normal gait present <CHANCE Marx - Last Filed: 11/25/22 14:54> Motor exam (neuro): 5/5 motor strength present throughout <CHANCE Marx - Last Filed: 11/25/22 14:54> Extrem General: Yes normal to inspection <CHANCE Marx - Last Filed: 11/25/22 14:54> Course Course Course Narrative: 27 year old female presents for evaluation of acute on chronic back pain. Reports worsening back pain x 1 month with left leg weakness and paresthesias. Denies bladder or bowel incontinence. Reports her primary wanted her to be seen. Patient is ambulatory without difficulty. Denies IV drug use <Angel Long - Last Filed: 11/25/22 11:47> 27 year old female presents for evaluation of acute on chronic back pain. Reports worsening back pain x 1 month with left leg weakness and paresthesias. Denies bladder or bowel incontinence. Reports her primary wanted her to be seen. Patient is ambulatory without difficulty. Denies IV drug use XR lumbar spine 2-3V IMPRESSION: No acute findings within the lumbosacral spine. No evidence of degenerative disc disease, fracture or malalignment. > Results discussed with patient including worrisome signs and symptoms and strict return precautions, and when to return to the emergency department. They verbalized understanding and feel safe for discharge at this time. <CHANCE Marx - Last Filed: 11/25/22 14:54> Medications Administered Discontinued Medications Generic Name Dose Route Start Last Admin Trade Name Freq PRN Reason Stop Dose Admin Cyclobenzaprine HCl 10 mg 11/25/22 12:52 11/25/22 13:00 Cyclobenzaprine Hcl 10 Mg Tablet PO 11/25/22 12:53 10 mg ONCE ONE Administration Ketorolac Tromethamine 30 mg 11/25/22 12:52 11/25/22 13:00 Ketorolac Tromethamine 30 Mg/Ml Vial IM 11/25/22 12:53 30 mg ONCE ONE Administration <Angel Long - Last Filed: 11/25/22 11:47> Medications Administered Discontinued Medications Generic Name Dose Route Start Last Admin Trade Name Freq PRN Reason Stop Dose Admin Cyclobenzaprine HCl 10 mg 11/25/22 12:52 11/25/22 13:00 Cyclobenzaprine Hcl 10 Mg Tablet PO 11/25/22 12:53 10 mg ONCE ONE Administration Ketorolac Tromethamine 30 mg 11/25/22 12:52 11/25/22 13:00 Ketorolac Tromethamine 30 Mg/Ml Vial IM 11/25/22 12:53 30 mg ONCE ONE Administration <CHANCE Marx - Last Filed: 11/25/22 14:54> Medical Decision Making Medical Decision Making MDM Narrative: 27-year-old female with a past medical history of chronic back pain presenting to the ED complaining of acute on chronic low back pain radiating down left lower extremity x1 month. On exam vital signs stable, NAD, nontoxic appearing, midline lumbar spinous tenderness noted, no red flag symptoms, no saddle anesthesia, ambulating with steady gait. Concern for herniated disc vs sciatica vs MSK pain/spasming. Low suspicion for pyelo, cauda equina, cord compression, or fracture Plan: X-ray, pain control, neurosurgery follow-up Please refer to course for remaining clinical decision making, interpretation of labs/imaging results, and discussions with consultants and/or family members. <CHANCE Marx - Last Filed: 11/25/22 14:54> Differential Diagnosis Differential Diagnoses: The differential diagnosis associated with the presentation includes <CHANCE Marx - Last Filed: 11/25/22 14:54> As above <CHANCE Marx - Last Filed: 11/25/22 14:54> Admission/Observation Consideration of admission/observation: Escalation of care including admission/observation considered <CHANCE Marx - Last Filed: 11/25/22 14:54> Lab Data MDM Lab Attestation statement: I reviewed the patient's lab results. <CHANCE Marx - Last Filed: 11/25/22 14:54> Radiology Impression Discussion of test interpretation with radiology: I have reviewed the radiologist's reading. <CHANCE Marx - Last Filed: 11/25/22 14:54> External Record Review External record reviewed: Inpatient record, Office record, Outpatient record, Prior outpatient labs, Prior outpatient radiology, Primary care record and Outside ED record <CHANCE Marx - Last Filed: 11/25/22 14:54> Discharge Plan Discharge Clinical Impression: Lumbar radiculopathy <Angel Long - Last Filed: 11/25/22 11:47> Patient Disposition: Home, Self-Care <Angel Long - Last Filed: 11/25/22 11:47> Instructions: Lumbar Radiculopathy (ED) <Angel Long - Last Filed: 11/25/22 11:47> Additional Instructions: Your pain is likely musculoskeletal Flexeril is a muscle relaxer, take at night as it makes you drowsy, do not drive, drink alcohol, or operate machinery while taking it Naproxen as an anti-inflammatory / pain medication, take with food Lidoderm patches are numbing patches, apply to painful area In addition take Tylenol at home If symptoms persist or worsen, pain becomes unbearable, you developed urinary retention or incontinence, or weakness return to the ED <Angel Long - Last Filed: 11/25/22 11:47> Prescriptions: New acetaminophen [Tylenol Extra Strength] 500 mg tablet 500 mg PO Q6H PRN (Reason: fever or pain) Qty: 14 0RF lidocaine [Lidoderm] 5 % adhesive patch,medicated 1 patch topical DAILY MDD remove after 12 hours PRN (Reason: pain) Qty: 30 0RF Rx Instructions: leave on most painful area for up to 12 hrs naproxen 500 mg tablet 500 mg PO BID PRN (Reason: pain) 10 Days Qty: 20 0RF cyclobenzaprine 5 mg tablet 5 mg PO Q8H PRN (Reason: pain (scale score 7-10)) 5 Days Qty: 14 0RF <Angel Long - Last Filed: 11/25/22 11:47> Referrals: Natalia Miller MD [Physician] - Alissa Osborn MD [Primary Care Provider] - 5 days <Angel Long - Last Filed: 11/25/22 11:47>
[2022-11-25] MEDS: Cyclobenzaprine HCl 10 MG TABLET PO (13:00)
[2022-11-25] MEDS: Ketorolac Tromethamine 30 MG/ML VIAL IM (13:00)
== END 2022-11-25 14:53 | disposition home or self-care (01) ==
PROVIDERS: Emergency Provider Student in an Organized Health Care Education/Training Program; PCP Internal Medicine
DX: M54.16 Radiculopathy, lumbar region (principal); M54.50 Low back pain, unspecified
CPT/HCPCS: 72100; 96372; 99283; 99284; J1885

== ENCOUNTER 2023-04-14 08:47 | Emergency (ER) | payer OTHER, SELFPAY ==
--- NOTE | ~2023-04-14 | XR_ITS ---
EXAMINATION: XR CHEST CLINICAL INFORMATION: Cough. COMPARISON: 06/15/2013 TECHNIQUE: 2 views of the chest were obtained. FINDINGS: The lungs are well expanded. No focal consolidation. No pleural effusion. Cardiac silhouette is unchanged. XR/XR chest 2V IMPRESSION: No acute abnormality.
[2023-04-14 09:10] VITALS: BP 129/69; PULSE 74; RESP 20; TEMP 36.7; O2SAT 96; BMI 38.7
--- NOTE | 2023-04-14 09:30 | ED.GENADULT ---
HPI - General Adult General Chief complaint: Upper Respiratory Symptoms Stated complaint: cough, chest pain Time Seen by Provider: 04/14/23 09:29 Source: patient Mode of arrival: ambulatory Limitations: no limitations History of Present Illness HPI narrative: Patient is a 28 year old assigned female at with no reported medical history presenting to the emergency department today with a cough. Patient states that over the last week she has had a cough that is worsening and now productive. Patient denies any dizziness, lightheadedness, abdominal pain, nausea, vomiting, fever, chills, blurry vision, double vision, loss of vision, chest pain, difficulty breathing, shortness of breath, back pain, night sweats, pain with urination, increased urinary frequency, increased urinary urgency, blood in her urine or stool, syncope or a near syncopal episode, recent trauma or falls, bowel incontinence, bladder incontinence, bowel retention, bladder retention, or any other complaints at this time. Onset (ago): week(s) (1) Severity: mild Severity scale (1-10): 3 Relieving factors: none Exacerbating factors: none Associated symptoms: cough Treatments prior to arrival: none Related Data Previous Rx's Medication Instructions Recorded acetaminophen 500 mg tablet 500 mg PO Q6H PRN fever or pain 11/25/22 (Tylenol Extra Strength) #14 tabs cyclobenzaprine 5 mg tablet 5 mg PO Q8H PRN pain (scale score 11/25/22 7-10) 5 days #14 tabs lidocaine 5 % topical patch 1 patch topical DAILY PRN pain #30 11/25/22 (Lidoderm) ea naproxen 500 mg tablet 500 mg PO BID PRN pain 10 days #20 11/25/22 tabs benzonatate 100 mg capsule 100 mg PO BID PRN cough 7 days #14 04/14/23 caps doxycycline hyclate 100 mg tablet 100 mg PO BID 7 days #14 tabs 04/14/23 Allergies Allergy/AdvReac Type Severity Reaction Status Date / Time morphine [MORPHINE] Allergy Unknown NAUSEA Verified 04/14/23 09:12 sertraline [From ZOLOFT] Allergy Unknown MIGRAINES Verified 04/14/23 09:12 Review of Systems Constitutional: Constitutional: Reports no additional constitutional complaints, Denies chills, Denies fever(s) and Denies night sweats Eyes: Eyes: Reports no additional eye complaints, Denies blurry vision, Denies change in vision, Denies diplopia, Denies eye discharge, Denies loss of vision and Denies eye pain ENT: Denies dizziness Cardiovascular: Cardiovascular: Reports no additional cardiovascular complaints, Denies chest pain, Denies lightheadedness, Denies Loss of Consciousness and Denies dyspnea Respiratory: Respiratory: Reports no additional respiratory complaints, Reports cough and Denies dyspnea Gastrointestinal: Gastrointestinal: Reports no additional gastrointestinal complaints, Denies abdominal pain, Denies melena, Denies hematochezia, Denies change in bowel habits and Denies change in stool character Genitourinary: Genitourinary: Denies hematuria, Denies urinary frequency, Denies dysuria, Denies urinary incontinence, Denies urinary hesitancy and Denies urinary urgency Musculoskeletal: Musculoskeletal: Reports no additional musculoskeletal complaints, Denies numbness and Denies tingling Neurologic: Denies dizziness, Denies loss of vision, Denies numbness and Denies tingling Psychiatric: Psychiatric: Reports no additional psychiatric complaints Endocrine: Endocrine: Reports no additional endocrine complaints Hematologic/Lymphatic: Hematologic/Lymphatic: Reports no additional hematologic/lymphatic complaints Allergic/Immunologic: Allergic/Immunologic: Reports no additional allergic/immunologic complaints PMFSH Past Medical History Attestation statement: The following information was validated with the patient. Source: old records reviewed and nursing notes reviewed Social History Social History Smoked in Last 30 Days: No Use of substances other than those prescribed or required for medical reasons: No Advance Directives: No Physical Exam ED Vital Signs: Vital Signs - 24 hr 04/14/23 09:10 04/14/23 10:35 04/14/23 11:04 Temperature 98.0 F 97.6 F Pulse Rate 74 70 Respiratory Rate 20 16 Blood Pressure 129/69 101/56 L Pulse Oximetry 96 97 97 Oxygen Delivery Method Room Air Room Air Room Air BMI result Body Mass Index 38.7 Const General: cooperative, no acute distress, alert and awake Nutritional Appearance: well nourished Orientation/consciousness: patient oriented x3 Limitations: no limitations HENMT Head: Yes normal to inspection and Yes atraumatic Ears: hearing grossly normal bilaterally and external ears normal General nose exam: Normal external nose present, no nasal discharge noted and no epistaxis Face and sinus: Yes normal facial exam, No abrasion and No laceration Mouth: Normal oral and palatal mucosa present, no drooling and no muffled voice Eyes General: appearance normal, both eyes and all related structures Periorbital: periorbital findings normal Eyelids: Yes eyelids normal Conjunctivae: conjunctivae normal Pupils: Equal, round and reactive pupils present EOM: EOMs intact bilaterally Neck Neck: Yes normal visual inspection, Yes full ROM and Yes no lymphadenopathy Chest Chest palpation & inspection: normal inspection of the chest Resp Effort & Inspection: normal respiratory effort and able to speak in complete sentences Auscultation: clear to auscultation bilaterally Cardio Rate: regular rate Rhythm: regular rhythm GI Inspection: Yes normal to inspection Neuro General: patient oriented x3 and moves all extremities Cranial nerves: Yes Equal, round and reactive pupils present Cognition (Neuro): normal cognition Motor exam (neuro): 5/5 motor strength present throughout Sensory Exam: Normal double simultaneous stimulation for sensation Coordination: [id number] test normal Extrem General: Yes normal to inspection, Yes full ROM and Yes capillary refill normal Psych Appearance: grossly normal Mental Status: mental status grossly normal Affect: normal affect Attitude: cooperative Thought process: Normal thought process present Thought content: Normal thought content present Insight: Good insight present (Psych) Medical Decision Making Medical Decision Making MDM Narrative: Patient is a 28 year old assigned female at with no reported medical history presenting to the emergency department today with a cough. Patient's physical exam was unremarkable. Patient's chest x-ray showed no acute process. Patient's COVID-19 test was negative. I explained my physical exam findings as well as all test results to the patient. I answered all questions asked by the patient. I stressed the importance of the patient taking her medication as prescribed. I stressed the importance of the patient following up with her primary care provider. I stressed the importance of the patient returning to the emergency department immediately if her symptoms were to worsen or if she were to develop any dizziness, shortness of breath, difficulty breathing, chest pain, blurry vision, loss of vision, nausea, vomiting, abdominal pain, fever, chills, back pain, or any other complaints. Patient verbalized agreement and understanding with this treatment plan and discharge. Differential Diagnosis Differential Diagnoses: The differential diagnosis associated with the presentation includes URI Walking pneumonia CAP Admission/Observation Consideration of admission/observation: Escalation of care including admission/observation considered Patient would have been admitted to the hospital had her work up had any findings where hospital admission was appropriate and her clinical presentation warranted hospital admission. Lab Data MDM Lab Attestation statement: I reviewed the patient's lab results. My interpretation of these studies and their corresponding values is that they are grossly normal. Labs: Lab Results 04/14/23 Range/Units 09:26 COVID-19 (SRIDEVI) Negative (Negative) COVID-19 Clin Com See Note Independent Interpretation I performed an independent interpretation of an: Plain X-Ray Interpretation: My interpretation is in agreement with the radiologist's impression of this imaging study. EXAMINATION: XR CHEST CLINICAL INFORMATION: Cough. COMPARISON: 06/15/2013 TECHNIQUE: 2 views of the chest were obtained. FINDINGS: The lungs are well expanded. No focal consolidation. No pleural effusion. Cardiac silhouette is unchanged. XR/XR chest 2V IMPRESSION: No acute abnormality. Dictated By: Rigoberto Ordoñez MD Signed By: Electronically signed by Rigoberto Ordoñez MD 04/14/23 0929 Radiology Impression Discussion of test interpretation with radiology: I have reviewed the radiologist's reading. Prescription Management I considered prescription management with: Antibiotic (given the length of the patient's symptoms, will cover with ABX) Discharge Plan Discharge Clinical Impression: Upper respiratory infection Patient Disposition: Home, Self-Care Instructions: Upper Respiratory Infection (DC) Additional Instructions: Follow up with your primary care provider. Return to the emergency department immediately if your symptoms worsen or if you develop any dizziness, shortness of breath, difficulty breathing, chest pain, blurry vision, loss of vision, nausea, vomiting, abdominal pain, fever, chills, back pain, or any other complaints. Prescriptions: New benzonatate 100 mg capsule 100 mg PO BID PRN (Reason: cough) 7 Days Qty: 14 0RF doxycycline hyclate 100 mg tablet 100 mg PO BID 7 Days Qty: 14 0RF No Action acetaminophen [Tylenol Extra Strength] 500 mg tablet 500 mg PO Q6H PRN (Reason: fever or pain) Qty: 14 0RF lidocaine [Lidoderm] 5 % adhesive patch,medicated 1 patch topical DAILY MDD remove after 12 hours PRN (Reason: pain) Qty: 30 0RF Rx Instructions: leave on most painful area for up to 12 hrs naproxen 500 mg tablet 500 mg PO BID PRN (Reason: pain) 10 Days Qty: 20 0RF cyclobenzaprine 5 mg tablet 5 mg PO Q8H PRN (Reason: pain (scale score 7-10)) 5 Days Qty: 14 0RF Referrals: Alissa Osborn MD [Primary Care Provider] - Interventions: ED Discharge Assessment Last Done: 04/14/23 11:08 Discharge Date/Time: 04/14/23 11:20 Print Language: Hebrew
[2023-04-14 10:00] LABS: IDNOW Serial# 08D9AD1C
[2023-04-14 10:01] LABS: COVID-19 Test Negative (Negative)
[2023-04-14 10:35] VITALS: BP 101/56; PULSE 70; RESP 16; TEMP 36.4; O2SAT 97
[2023-04-14 11:04] VITALS: PULSE 80; O2SAT 97
--- NOTE | 2023-04-14 11:08 | PC.NURSE ---
resting calm coop. no distress
== END 2023-04-14 11:20 | disposition home or self-care (01) ==
PROVIDERS: Emergency Provider Student in an Organized Health Care Education/Training Program; PCP Internal Medicine
DX: J06.9 Acute upper respiratory infection, unspecified (principal); R07.89 Other chest pain; R05.9 Cough, unspecified; Z20.822 Contact with and (suspected) exposure to COVID-19; Z20.828 Contact with and (suspected) exposure to other viral communicable diseases
CPT/HCPCS: 71046; 87635; 99283; 99285

== ENCOUNTER 2023-08-31 22:43 | Emergency (ER) | payer OTHER, SELFPAY ==
--- NOTE | 2023-08-31 22:52 | ECG_ITS ---
Test Reason : CHEST PAIN Blood Pressure : / mmHG Vent. Rate : 088 BPM Atrial Rate : 088 BPM P-R Int : 144 ms QRS Dur : 084 ms QT Int : 362 ms P-R-T Axes : 035 018 036 degrees QTc Int : 438 ms Normal sinus rhythm Normal ECG When compared with ECG of 15-JUN-2013 23:09, No significant change was found Referred By: Generic ED Physician Electronically Signed By:MELISSA HOFF
[2023-08-31 23:12] VITALS: BP 130/79; PULSE 88; RESP 20; TEMP 36.9; O2SAT 98; BMI 37.4
[2023-08-31 23:24] LABS: MANUAL DIFF FLAG NO
[2023-08-31 23:25] LABS: Basophils Percent Auto 0.5 % (0-2); Eosinophils Absolute Auto 0.3 X10*3/uL (0.0-0.4); Eosinophils Percent Auto 3.6 % (0-4); Hematocrit 38.9 % (37.0-47.0); Hemoglobin 13.4 g/dl (12.0-16.0); Imm Gran Abs Auto 0.02 X10*3/uL (0.00-0.03); Imm Gran Pct Auto 0.2 % (0.0-0.4); Lymphocytes Absolute Auto 3.2 X10*3/uL (1.2-4.9); Lymphocytes Percent Auto 38.8 % (20-40); Mean Corpuscular HGB Conc 34.4 g/dl (31.0-35.0); Mean Corpuscular Hemoglobin 29.7 pg (27.0-33.0); Mean Corpuscular Volume 86.3 fL (80.0-98.0); Mean Platelet Volume 9.8 fL (9.4-12.3); Monocytes Absolute Auto 0.5 X10*3/uL (0.1-1.2); Monocytes Percent Auto 6.2 % (2-11); Neutrophils Absolute Auto 4.2 x10*3/uL (2.0-8.3); Neutrophils Percent Auto 50.7 % (45-73); Platelet Count 302 X10*3/uL (160-400); Red Blood Count 4.51 X10*6/uL (4.20-5.50); White Blood Count 8.2 X10*3/uL (4.8-10.8)
[2023-08-31 23:44] LABS: Alanine Aminotransferase 56 U/L (0-31); Albumin Level 4.3 g/dL (3.5-5.0); Alkaline Phosphatase 80 U/L (39-117); Anion Gap 13 (12-20); Aspartate Amino Transferase 27 U/L (5-31); Bilirubin Total 0.2 mg/dL (0.0-1.0); Blood Urea Nitrogen 12 mg/dL (9-16); Carbon Dioxide 26 mmol/L (22-29); Chloride 104 mmol/L (96-108); Creatinine Clr Calc Pharmacy 117.5; Estimated Glomerular Filt Rate > 60; Glucose Random 185 mg/dL (60-115); Potassium 3.7 mmol/L (3.3-5.1); Sodium 139 mmol/L (135-145); Total Protein 7.6 g/dL (6.5-8.0)
[2023-09-01 00:52] LABS: Troponin-I High Sensitivity < 2.7 ng/L (<3.5-17.0)
[2023-09-01 02:00] VITALS: BP 127/70; PULSE 75; RESP 17; O2SAT 96
[2023-09-01 03:43] LABS: COVID-19 Test Negative (Negative); IDNOW Serial# 08D9AD1C; IDNOW Serial# BCCEAD1C; Influenza A Negative (Negative); Influenza B2 Negative (Negative)
[2023-09-01 04:04] VITALS: BP 105/60; PULSE 75; RESP 15; TEMP 36.6; O2SAT 96
--- NOTE | 2023-09-01 04:19 | ED.CHESTPAIN ---
HPI - Chest Pain General Chief Complaint: Chest Pain Stated Complaint: Chest pain Time Seen by Provider: 09/01/23 03:19 Source: patient Mode of arrival: ambulatory History of Present Illness HPI narrative: 28-year-old female with presentation of having had COVID at the end of July and had a persistent cough since that time now presents with anterior chest wall across the entire anterior portion of her chest with reported radiation of the left arm but no associated nausea, dizziness and she has had no symptoms of fever, chills. Related Data Previous Rx's Medication Instructions Recorded acetaminophen 500 mg tablet 500 mg PO Q6H PRN fever or pain 11/25/22 (Tylenol Extra Strength) #14 tabs cyclobenzaprine 5 mg tablet 5 mg PO Q8H PRN pain (scale score 11/25/22 7-10) 5 days #14 tabs lidocaine 5 % topical patch 1 patch topical DAILY PRN pain #30 11/25/22 (Lidoderm) ea naproxen 500 mg tablet 500 mg PO BID PRN pain 10 days #20 11/25/22 tabs benzonatate 100 mg capsule 100 mg PO BID PRN cough 7 days #14 04/14/23 caps doxycycline hyclate 100 mg tablet 100 mg PO BID 7 days #14 tabs 04/14/23 Allergies Allergy/AdvReac Type Severity Reaction Status Date / Time morphine [MORPHINE] Allergy Unknown NAUSEA Verified 08/31/23 23:15 sertraline [From [facility]OLO[facility]] Allergy Unknown MIGRAINES Verified 08/31/23 23:15 Review of Systems Review of Systems: Pertinent positives and negatives as stated in HPI PMFSH Past Medical History Source: nursing notes reviewed Social History Social History Advance Directives: No Advance Directives Information Provided: No Physical Exam Vital Signs: Vital Signs: Last Vital Signs Temp 97.8 F 09/01/23 04:04 Pulse 75 09/01/23 04:04 Resp 15 09/01/23 04:04 BP 105/60 09/01/23 04:04 Pulse Ox 96 09/01/23 04:04 O2 Del Method Room Air 09/01/23 04:04 BMI result Body Mass Index 37.4 VITAL SIGNS: Reviewed. GENERAL: Well developed, well nourished, in no acute distress. HEAD: Normocephalic/atraumatic EYES: PERRLA, EOMI EARS: Ext canals without abnormality, TMs non-bulging and non-erythematous NOSE: Nares patent bilateral OROPHARYNX: no oral lesions noted, posterior pharynx clear and non-erythematous without noted tonsillar enlargement/erythema/exudates NECK: Supple, no adenopathy LUNGS: Normal breath sounds. No adventitious sounds or accessory muscle use. SpO2<96> CARDIOVASCULAR: Regular rate and rhythm without noted murmurs ABDOMEN: Soft, non-tender, non-distended with bowel sounds. MUSCULOSKELETAL: No tenderness, deformities, or effusions noted on gross inspection. EXTREMITIES: No cyanosis, clubbing or edema. SKIN: Inspection of the skin reveals no rashes NEUROLOGIC: Alert and oriented x 4. Strength and sensation to light touch were grossly intact x 4. Medical Decision Making Medical Decision Making [facility] Narrative: 28-year-old female with history and clinical presentation, DDX: Viral illness, musculoskeletal, costochondritis, low clinical suspicion for pneumonia or ACS. I reviewed all investigations and hematologic indices are negative for leukocytosis/left shift/anemia/thrombocytopenia. Chemistry and sees are negative for OMREO or electrolyte/liver enzyme derangements, I sensitivity troponin is undetectable there are no acute changes on EKG. Viral testing is negative for COVID-19/influenza. My interpretation is patient has musculoskeletal pain, costochondritis from persistent cough after COVID. Patient received combination analgesics and was otherwise discharged home. Differential Diagnosis Differential Diagnoses: The differential diagnosis associated with the presentation includes Please see the discussion above Admission/Observation Consideration of admission/observation: Escalation of care including admission/observation considered Please see the discussion above Lab Data [facility] Lab Attestation statement: I reviewed the patient's lab results. Please see the discussion above 08/31/23 23:18 08/31/23 23:18 Labs: Lab Results 08/31/23 09/01/23 Range/Units 23:18 03:25 WBC 8.2 (4.8-10.8) X10*3/uL RBC 4.51 (4.20-5.50) X10*6/uL Hgb 13.4 (12.0-16.0) g/dl Hct 38.9 (37.0-47.0) % MCV 86.3 (80.0-98.0) fL MCH 29.7 (27.0-33.0) pg MCHC 34.4 (31.0-35.0) g/dl RDW 12.0 (11.0-16.0) % Plt Count 302 (160-400) X10*3/uL MPV 9.8 (9.4-12.3) fL Immature Gran % (Auto) 0.2 (0.0-0.4) % Neut % (Auto) 50.7 (45-73) % Lymph % (Auto) 38.8 (20-40) % [place] % (Auto) 6.2 (2-11) % Eos % (Auto) 3.6 (0-4) % Baso % (Auto) 0.5 (0-2) % Lymph # (Auto) 3.2 (1.2-4.9) X10*3/uL [place] # (Auto) 0.5 (0.1-1.2) X10*3/uL Eos # (Auto) 0.3 (0.0-0.4) X10*3/uL Baso # (Auto) 0.0 (0.0-0.2) X10*3/uL Abs Immat Gran (auto) 0.02 (0.00-0.03) X10*3/uL Absolute Neuts (auto) 4.2 (2.0-8.3) x10*3/uL Absolute Nucleated RBC 0.000 (0.0-0.012) X10*3/uL Nucleated RBC % (auto) 0.0 (0.0-0.2) /100WBC Sodium 139 (135-145) mmol/L Potassium 3.7 (3.3-5.1) mmol/L Chloride 104 (96-108) mmol/L Carbon Dioxide 26 (22-29) mmol/L Anion Gap 13 (12-20) BUN 12 (9-16) mg/dL Creatinine 0.80 (0.5-1.4) mg/dL Estim Creat Clear Calc 117.5 Estimated GFR > 60 Random Glucose 185 H (60-115) mg/dL Calcium 10.0 (8.4-10.2) mg/dL Total Bilirubin 0.2 (0.0-1.0) mg/dL AST 27 (5-31) U/L ALT 56 H (0-31) U/L Alkaline Phosphatase 80 (39-117) U/L Troponin I High Sens < 2.7 (<3.5-17.0) ng/L Total Protein 7.6 (6.5-8.0) g/dL Albumin 4.3 (3.5-5.0) g/dL COVID-19 (SRIDEVI) Negative (Negative) COVID-19 Clin Com See Note Influenza Type A (INESSA) Negative (Negative) Influenza Type B (INESSA) Negative (Negative) Influenza A & B Note See Note Independent Interpretation I performed an independent interpretation of an: EKG Interpretation: Normal sinus rhythm, HR-88, no STEMI, NC/QRS/QTC is within normal limits. External Record Review External record reviewed: Outpatient record and Prior outpatient labs Discharge Plan Discharge Clinical Impression: Atypical chest pain, Anterior chest wall pain, Musculoskeletal pain Patient Disposition: Home, Self-Care Instructions: Musculoskeletal Pain (ED), Chest Wall Pain (ED) Additional Instructions: 1. Recommend [id number] Tylenol/ibuprofen as needed for pain control. 2. Follow-up with primary care doctor in the next 1-2 days. Return to the ER for any worsening symptoms. Prescriptions: No Action acetaminophen [Tylenol Extra Strength] 500 mg tablet 500 mg PO Q6H PRN (Reason: fever or pain) Qty: 14 0RF lidocaine [Lidoderm] 5 % adhesive patch,medicated 1 patch topical DAILY MDD remove after 12 hours PRN (Reason: pain) Qty: 30 0RF Rx Instructions: leave on most painful area for up to 12 hrs naproxen 500 mg tablet 500 mg PO BID PRN (Reason: pain) 10 Days Qty: 20 0RF cyclobenzaprine 5 mg tablet 5 mg PO Q8H PRN (Reason: pain (scale score 7-10)) 5 Days Qty: 14 0RF benzonatate 100 mg capsule 100 mg PO BID PRN (Reason: cough) 7 Days Qty: 14 0RF doxycycline hyclate 100 mg tablet 100 mg PO BID 7 Days Qty: 14 0RF Referrals: Alissa Osborn MD [Primary Care Provider] -
[2023-09-01] MEDS: Acetaminophen 325 MG TABLET 975 MG PO (04:40)
[2023-09-01] MEDS: Ibuprofen 400 MG TABLET PO (04:41)
== END 2023-09-01 04:50 | disposition home or self-care (01) ==
PROVIDERS: Emergency Provider Student in an Organized Health Care Education/Training Program; PCP Internal Medicine
DX: R07.89 Other chest pain (principal); R05.9 Cough, unspecified; M79.10 Myalgia, unspecified site; Z11.52 Encounter for screening for COVID-19; Z20.822 Contact with and (suspected) exposure to COVID-19; Z79.899 Other long term (current) drug therapy
CPT/HCPCS: 36415; 80053; 84484; 85025; 87502; 87635; 93005; 99283; 99285

== ENCOUNTER → 2023-08-31 22:52 | Outpatient (BNV) | payer OTHER, SELFPAY | PROVIDERS: Emergency Provider Student in an Organized Health Care Education/Training Program; PCP Internal Medicine; Visit Provider Internal Medicine | DX: R07.9 Chest pain, unspecified (principal) | CPT/HCPCS: 93010 ==